=== PATIENT | female | born 1945 | race Caucasian/White ===

== ENCOUNTER 2016-03-04 22:44 | Emergency (ER) | payer OTHER ==
[~2016-03-04] VITALS: Ht 144.8 cm; Wt 58.6 kg
[~2016-03-04 22:44] MED LIST: AMBIEN10 M1 PO; AMBIEN10 MG PO; ASPIR 8181 M1 PO; ASPIRIN81 M1 PO; Ambien PO; BACTRIM,SEPT1 TABLET PO; CALTRATE 600 +1 EACH PO; CALTRATE 6001 TABLET PO; CHILD ASPIRIN81 M1 PO; CIPRO500 MG PO; COUMADIN1 MG PO; COUMADIN3 MG PO; COUMADIN5 MG PO; DETROL LA4 MG PO; DIGOXIN125 MCG PO; ELIQUIS5 MG PO; FUROSEMIDE20 MG PO; FUROSEMIDE40 MG PO; KEFLEX500 MG PO; KLOR-CON 1010 ME1 PO; KLOR-CON M2020 MEQ PO; KLOR-CON20 MEQ PO; LASIX40 MG PO; LEVAQUIN750 MG PO; LEXAPRO10 MG PO; LISINOPRIL10 MG PO; LISINOPRIL2.5 MG PO; LOVENOX300 MG/3 M SC; METOPROLOL SUC100 MG PO; MORPHINE SULFAT15 M1 PO; MULTI-VITAMIN1 EAC4 PO; OXYBUTYNIN CHLOR5 M1 PO; OXYCODONE-APAP1 EAC4; OYST-CAL D, OS500 M1 PO; PERCOCET 7.51 TABLET PO; PLAVIX75 MG PO; PRINIVIL10 MG PO; ROXICET 5-3251 EACH PO; SIMVASTATIN80 M1 PO; SIMVASTATIN80 MG PO; TIZANIDINE HCL2 M1 PO; TIZANIDINE HCL2 MG; TRAMADOL HCL50 MG PO; TYLENOL EXTRA500 MG PO; TYLENOL WITH C1 EACH PO; Tylenol Regular Stre PO; ULTRAM50 MG PO; VENTOLIN HFA18 GM IH; VITAMIN B-12 PO; WARFARIN SODIU2.5 MG PO; WARFARIN SODIUM2 MG PO; WARFARIN SODIUM3 MG PO; WARFARIN SODIUM5 MG PO; ZOLPIDEM TARTRA10 MG; ambien PO
[2016-03-05 00:59] VITALS: BP 123/101
== END 2016-03-05 01:00 | disposition home or self-care (01) ==
LOC: EME 22:44
PROC: 0HQLXZZ Repair Left Lower Leg Skin, External Approach (ICD-10-PCS; principal; 2016-03-05)
DX: I83.892 Varicose veins of left lower extremity with other complications (principal); Z79.01 Long term (current) use of anticoagulants; Z79.82 Long term (current) use of aspirin; Z86.718 Personal history of other venous thrombosis and embolism; Z79.891 Long term (current) use of opiate analgesic
CPT/HCPCS: 99281; 99284

== ENCOUNTER 2017-04-24 18:53 | Inpatient (IN) | payer OTHER ==
[~2017-04-24] VITALS: Ht 144.8 cm; Wt 65.5 kg
[2017-04-24 19:25] LABS: HEMATOCRIT 38.7 % (36.0-46.0); HEMOGLOBIN 13.3 G/DL (11.9-15.5); MCH 32.8 PG (29.0-34.0); MCHC 34.4 G/DL (30.0-36.0); MCV 95.3 FL (83-99); PLATELET COUNT 268 K/uL (156-360); RBC DIS.WIDTH-CV 12.6 % (11.8-14.6); RBC DIS.WIDTH-SD 44.6 % (39-53); RED BLOOD COUNT 4.06 M/uL (3.80-5.20); WHITE BLOOD COUNT 21.3 K/uL (4.1-10.2)
[2017-04-24 19:34] LABS: ALBUMIN 3.7 g/dL (3.2-4.8)
[2017-04-24 19:35] LABS: CHLORIDE 101 mEq/L (99-109); POTASSIUM 3.8 mEq/L (3.7-5.4); SODIUM 136 mEq/L (136-147)
[2017-04-24 19:37] LABS: GLUCOSE 114 mg/dL (70-99); TOTAL PROTEIN 6.7 g/dL (6.4-8.3)
[2017-04-24 19:39] LABS: TOTAL BILIRUBIN 1.5 mg/dL (0.0-1.0)
[2017-04-24 19:40] LABS: ALKALINE PHOSPHATASE 80 IU/L (3-129)
[2017-04-24 19:41] LABS: CREATININE 1.5 mg/dL (0.6-1.3); GFR ESTIMATE (CALCULATED) 36 mL/min/
[2017-04-24 19:42] LABS: AST (GOT) 23 IU/L (2-34); UREA NITROGEN (BUN) 33 mg/dL (9-23)
[2017-04-24 19:43] LABS: ALT (GPT) 14 IU/L (3-49)
[2017-04-24 19:47] LABS: TROP-I INTERPRETATION NEGATIVE; TROPONIN-I 0.02 ng/mL (0.0-0.30)
[2017-04-24] MEDS ORDERED: HYDROCHLOROTHIA25 MG PO (20:37)
[2017-04-24] MEDS ORDERED: PRINIVIL20 MG PO (20:37)
[2017-04-24] MEDS ORDERED: METOPROLOL TART50 MG PO (20:41)
[2017-04-24 23:10] LABS: APPEARANCE SL.HAZY ((CLEAR)); BILIRUBIN NEGATIVE; BLOOD NEGATIVE; COLOR YELLOW ((YELLOW)); GLUCOSE (STRIP) NEGATIVE; KETONES NEGATIVE; LEUKOCYTES LARGE; NITRITE NEGATIVE; PROTEIN (STRIP) NEGATIVE; SPECIFIC GRAVITY 1.012 (1.000-1.030); UROBILINOGEN 0.2 MG/DL (0.2-1.0)
[2017-04-24 23:39] LABS: RED BLOOD CELLS 0-5 /HPF (0-5)
[2017-04-24 23:41] LABS: BACTERIA 1+ /HPF; EPITHELIAL CELLS 1+ /HPF; MUCUS NONE SEEN /LPF; UCUL ADDED? YES; WHITE BLOOD CELLS 20-30 /HPF (0-5)
[2017-04-25] MEDS ORDERED: CYANOCOBALAM1000 MCG PO (00:44)
[2017-04-25 02:53] VITALS: BP 158/71
[2017-04-25 07:00] VITALS: BP 91/50
[2017-04-25 11:00] VITALS: BP 96/46
[2017-04-25 16:10] VITALS: BP 102/53
[2017-04-25 20:20] VITALS: BP 118/52
[2017-04-26 01:00] VITALS: BP 124/74
[2017-04-26 04:50] VITALS: BP 118/72
[2017-04-26 06:56] VITALS: BP 107/56
[2017-04-26 07:33] LABS: HEMATOCRIT 33.4 % (36.0-46.0); MCH 32.3 PG (29.0-34.0); MCHC 33.2 G/DL (30.0-36.0); MCV 97.1 FL (83-99); RBC DIS.WIDTH-CV 12.5 % (11.8-14.6); RBC DIS.WIDTH-SD 44.5 % (39-53); RED BLOOD COUNT 3.44 M/uL (3.80-5.20); WHITE BLOOD COUNT 6.3 K/uL (4.1-10.2)
[2017-04-26 07:34] LABS: HEMOGLOBIN 11.1 G/DL (11.9-15.5)
[2017-04-26 07:50] LABS: ALBUMIN 3.1 G/DL (3.2-4.8); ALKALINE PHOSPHATASE 58 IU/L (3-129); ALT (GPT) 10 IU/L (3-49); AST (GOT) 14 IU/L (2-34); CHLORIDE 109 MEQ/L (99-109); GLUCOSE 93 mg/dL (70-99); POTASSIUM 4.3 MEQ/L (3.7-5.4); SODIUM 141 MEQ/L (136-147); TOTAL BILIRUBIN 0.4 MG/DL (0.0-1.0); UREA NITROGEN (BUN) 15 mg/dL (9-23)
[2017-04-26 07:51] LABS: CREATININE 0.6 MG/DL (0.6-1.3); GFR ESTIMATE (CALCULATED) > 59 mL/min/
[2017-04-26 08:02] LABS: PLAT.SUFFICIENCY ADEQUATE
[2017-04-26 08:19] LABS: PLATELET COUNT 166 K/uL (156-360)
[2017-04-26 15:07] VITALS: BP 136/65
[2017-04-26 23:45] VITALS: BP 117/78
[2017-04-27 07:41] VITALS: BP 136/62
[2017-04-27 15:39] VITALS: BP 169/85
[2017-04-27 18:25] VITALS: BP 144/77
[2017-04-27 23:30] VITALS: BP 135/70
[2017-04-28 07:37] VITALS: BP 176/78
[2017-04-28 15:33] VITALS: BP 197/81
[2017-04-28 15:57] VITALS: BP 152/86
[2017-04-28] MEDS ORDERED: CEFTIN500 MG PO (16:55)
== END 2017-04-28 18:44 | disposition home or self-care (01) | DRG 690 ==
LOC: EME 18:53 → EDOF 04-25 01:13 → 2EAST 04-25 01:13 → ENRESERV 04-25 01:20 → 2EAST 04-25 02:48
PROVIDERS: Emergency Medicine; Family Medicine; Internal Medicine
DX: N30.00 Acute cystitis without hematuria (principal); N17.9 Acute kidney failure, unspecified; R91.8 Other nonspecific abnormal finding of lung field; I95.1 Orthostatic hypotension; I48.2 Chronic atrial fibrillation; G89.29 Other chronic pain; I10 Essential (primary) hypertension; E78.5 Hyperlipidemia, unspecified; Z96.653 Presence of artificial knee joint, bilateral; Z87.891 Personal history of nicotine dependence; Z86.718 Personal history of other venous thrombosis and embolism; Z86.711 Personal history of pulmonary embolism
CPT/HCPCS: 71046; 71250; 80053; 81003; 82948; 83605; 84484; 85027; 87040; 87077; 87086; 87186; 93005; 99202; 99281; 99285; J0696; J2405; J7030